=== PATIENT | male | born 1995 | race Asian ===

== ENCOUNTER → 2017-11-25 | Outpatient (CLI) | payer BC ==
[2017-11-25 10:38] LABS: ALANINE AMINOTRANSFERASE 27 U/L (0-55); ALBUMIN 4.6 GM/DL (3.2-4.5); ALKALINE PHOSPHATASE 59 U/L (40-136); BILIRUBIN,TOTAL 0.7 MG/DL (0.1-1.0); BUN/CREATININE RATIO 14; CALCIUM 9.6 MG/DL (8.5-10.1); CARBON DIOXIDE 22 MMOL/L (21-32); CHLORIDE 105 MMOL/L (98-107); CHOLESTEROL 182 MG/DL (< 200); CREATININE SERUM 0.72 MG/DL (0.60-1.30); GFR ESTIMATED > 60; GLUCOSE 97 MG/DL (70-105); HDL CHOLESTEROL 31 MG/DL (40-60); POTASSIUM 3.9 MMOL/L (3.6-5.0); SODIUM 137 MMOL/L (135-145); TRIGLYCERIDES 165 MG/DL (<150); VLDL CHOLESTEROL 33 MG/DL (5-40)
== END ==
LOC: LAB 09:52
PROVIDERS: ATTEND Nurse Practitioner Family
DX: L70.0 Acne vulgaris (principal); Z79.899 Other long term (current) drug therapy
CPT/HCPCS: 36415; 80053; 80061

== ENCOUNTER → 2017-12-29 | Outpatient (CLI) | payer BC ==
[2017-12-29 12:22] LABS: ALANINE AMINOTRANSFERASE 34 U/L (0-55); ALBUMIN 4.5 GM/DL (3.2-4.5); ALKALINE PHOSPHATASE 70 U/L (40-136); BILIRUBIN,TOTAL 0.8 MG/DL (0.1-1.0); BUN/CREATININE RATIO 16; CARBON DIOXIDE 21 MMOL/L (21-32); CHLORIDE 106 MMOL/L (98-107); CHOLESTEROL 215 MG/DL (< 200); CREATININE SERUM 0.74 MG/DL (0.60-1.30); GFR ESTIMATED > 60; GLUCOSE 95 MG/DL (70-105); HDL CHOLESTEROL 36 MG/DL (40-60); POTASSIUM 4.3 MMOL/L (3.6-5.0); SODIUM 139 MMOL/L (135-145); TOTAL PROTEIN 8.3 GM/DL (6.4-8.2); TRIGLYCERIDES 205 MG/DL (<150); VLDL CHOLESTEROL 41 MG/DL (5-40)
== END ==
LOC: LAB 11:34
PROVIDERS: ATTEND Nurse Practitioner Family
DX: L70.0 Acne vulgaris (principal); Z79.899 Other long term (current) drug therapy
CPT/HCPCS: 36415; 80053; 80061

== ENCOUNTER → 2018-02-02 | Outpatient (CLI) | payer BC ==
[2018-02-02 10:09] LABS: ALANINE AMINOTRANSFERASE 33 U/L (0-55); ALBUMIN 4.8 GM/DL (3.2-4.5); ALKALINE PHOSPHATASE 74 U/L (40-136); BILIRUBIN,TOTAL 0.7 MG/DL (0.1-1.0); BUN/CREATININE RATIO 14; CALCIUM 10.1 MG/DL (8.5-10.1); CARBON DIOXIDE 21 MMOL/L (21-32); CHLORIDE 103 MMOL/L (98-107); CREATININE SERUM 0.83 MG/DL (0.60-1.30); GFR ESTIMATED > 60; GLUCOSE 109 MG/DL (70-105); POTASSIUM 4.1 MMOL/L (3.6-5.0); SODIUM 138 MMOL/L (135-145); TOTAL PROTEIN 8.5 GM/DL (6.4-8.2)
== END ==
LOC: LAB 09:19
PROVIDERS: ATTEND Nurse Practitioner Family
DX: L70.0 Acne vulgaris (principal); Z79.899 Other long term (current) drug therapy
CPT/HCPCS: 36415; 80053

== ENCOUNTER 2018-10-16 13:40 | Emergency (ER) | payer BC ==
[~2018-10-16] VITALS: Ht 185.4 cm; Wt 136.1 kg
--- NOTE | 2018-10-16 15:20 | NUR ---
pt here with " father". pt alert [facility] 15. pt c/o s/t started last noc associated with " something growing by my uvula". pt having trouble swalling with worse pain. pt also c/o dyspnea and no acute sighns of dyspnea noted. lungs equal cta bilaterally. pt denies fever at home and pain rating is 5. done leanne pt at 1525.
--- NOTE | 2018-10-16 15:27 | NUR ---
strep screen by me and to lab by me oralpharynx appears wnl however there looks like a ? skin tag that is next to his left side of uvula . uvula itself appears small but normal.
--- NOTE | 2018-10-16 16:07 | ED EENT ---
History of Present Illness General Chief Complaint: Oral/Throat Problems Stated Complaint: THROAT DISCOMFORT Nursing Triage Note: s/t History of Present Illness Date Seen by Provider: Oct 16, 2018 Time Seen by Provider: 15:50 Initial Comments 23-year-old male presents for a skin tag to the left side of the uvula. He has been watching it over the last week with no change in symptoms, he is unsure how long it has been present. He is having no difficulty breathing or swallowing. He attempted to make an appointment with Dr. Topete's office and was told it would take 4 weeks so he presented here for an earlier referral. Timing/Duration: last week Prearrival Treatment: no prearrival treatment Associated Symptoms: denies symptoms Allergies and Home Medications Patient Home Medication List Home Medication List Reviewed: Yes Review of Systems Review of Systems Constitutional: no symptoms reported, see HPI Throat: see HPI, other (lesion to left uvula, asymptomatic) All Other Systems Reviewed Negative Unless Noted: Yes Past Agbmqhl-Rjzjzo-Gqpgti Hx Past Med/Social Hx: Reviewed Nursing Past Med/Soc Hx Patient Social History Alcohol Use: Denies Use Recreational Drug Use: No Smoking Status: Never a Smoker Recent Foreign Travel: No Contact w/Someone Who Travel: No Recent Infectious Disease Expo: No Physical Abuse: No Sexual Abuse: No Past Medical History Reproductive Disorders: No Physical Exam Vital Signs Vital Signs - First Documented 10/16/18 15:20 Temp 98.2 Pulse 64 Resp 16 B/P (MAP) 145/85 (105) Pulse Ox 99 O2 Delivery Room Air Height, Weight, BMI Height: 6'1.00" Weight: 300lbs. oz. 136.075158fa; BMI Method:Stated General Appearance: WD/WN, no apparent distress Ears: bilateral ear auricle normal, bilateral ear canal normal, bilateral ear TM normal Nose: normal inspection; No active bleeding, No discharge Mouth/Throat: normal mouth inspection; No excessive drooling, No foreign body, No tongue swollen, No tonsillar exudate, No tonsillar swelling, No uvula swelling; other (very small skin growth to left side of uvula, no erythema or exudate.) Neck: non-tender, full range of motion, supple, normal inspection; No lymphadenopathy (R), No lymphadenopathy (L) Cardiovascular: normal peripheral pulses, regular rate, rhythm Respiratory: chest non-tender, lungs clear, normal breath sounds, no res piratory distress Neurologic/Psychiatric: no motor/sensory deficits, alert, normal mood/affect, oriented x 3 Skin: normal color, warm/dry Progress/Results/Core Measures Results/Orders Lab Results Laboratory Tests Test 10/16/18 15:27 Range/Units Group A Streptococcus Screen NEGATIVE NEGATIVE My Orders Orders - SALOMON KULKARNI Rapid Strep A Screen (10/16/18 15:00) Vital Signs/I&O 10/16/18 10/16/18 15:20 16:20 Temp 98.2 98.2 Pulse 64 64 Resp 16 16 B/P (MAP) 145/85 (105) 145/85 (105) Pulse Ox 99 99 O2 Delivery Room Air Room Air Blood Pressure Mean: 105 Departure Impression Primary Impression: Lesion of uvula Disposition: HOME, SELF-CARE Condition: Improved Departure-Patient Inst. Decision time for Depature: 16:00 Referrals: NO,LOCAL PHYSICIAN (PCP/Family) Primary Care Physician Patient Instructions: Sore Throat, Adult (DC) Add. Discharge Instructions: You will need to call Dr. Topete's office for an appt, they need to verify your insurance prior to scheduling. Continue salt water gargles, with warm water. Activity as tolerated. May alternate between ibuprofen 600 mg and Tylenol 650 mg every 4 hours for chito n. Return to emergency department for new, urgent health care needs. All discharge instructions reviewed with patient and/or family. Voiced understanding. Copy Copies To 1: RIANA TOPETE MD, AMY ARNP Oct 16, 2018 16:07
[2018-10-16 16:20] VITALS: BP 145/85
--- NOTE | 2018-10-16 16:20 | NUR ---
d/c instrcutions to pt. told to read all papers. no scripts given. pt left ambulatory with dad. pt knows f/u. i went over the handtyped by information on the chart. pt had no iv.
== END 2018-10-16 16:20 | disposition home or self-care (01) ==
LOC: EDUNIT# 13:40 → ER 13:41
DX: J39.2 Other diseases of pharynx (principal)
CPT/HCPCS: 87430; 99284